=== PATIENT | female | born 1990 | race Caucasian/White ===

== ENCOUNTER 2017-06-30 14:44 | Emergency (ER) | payer SELFPAY ==
--- NOTE | 2017-06-30 15:41 | RAD REPORT ---
EXAM DESCRIPTION: CT - Head Brain Wo Cont - 06/30/2017 3:32 pm CLINICAL HISTORY: Trauma, head injury. COMPARISON: None. TECHNIQUE: All CT scans are performed using dose optimization technique as appropriate and may inclu de automated exposure control or mA/KV adjustment according to patient size. FINDINGS: No intracranial hemorrhage, hydrocephalus or extra-axial fluid collection.No areas of brai n edema or evidence of midline shift. The paranasal sinuses and mastoids are clear. The calvarium is intact. IMPRESSION: No acute intracranial abnormality.
--- NOTE | 2017-06-30 15:45 | RAD REPORT ---
EXAM DESCRIPTION: CT - Thorax Wo Con CLINICAL HISTORY: Trauma to left lateral chest COMPARISON: None FINDINGS: The lungs are clear. No pleural thickening or pleural effusion. No pneumothorax. No axillary, mediastinal or hilar adenopathy. No displaced rib fracture seen. Evidence of old healed left-sided rib fractures is noted. No gross up per abdominal finding. All CT scans are performed using dose optimization technique as appropriate and may include automated exposure control or mA/KV adjustment according to patient size. IMPRESSION: No acute intrathoracic process is identified.
[2017-06-30] MEDS ORDERED: ACETAMINOPHEN 500 MG TAB ONE (15:51)
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
[2017-06-30 16:23] VITALS: BP 97/50; O2SAT 100
== END 2017-06-30 16:13 | disposition home or self-care (01) ==
LOC: ER 14:44
DX: S20.20XA Contusion of thorax, unspecified, initial encounter (principal); S00.83XA Contusion of other part of head, initial encounter; Y04.8XXA Assault by other bodily force, initial encounter; Y93.9 Activity, unspecified; Y92.009 Unspecified place in unspecified non-institutional (private) residence as the place of occurrence of the external cause
CPT/HCPCS: 70450; 71250; 99284

== ENCOUNTER 2018-02-02 23:32 | Emergency (ER) | payer SELFPAY ==
[2018-02-03] MEDS ORDERED: KETOROLAC 30 MG/ML INJ ONE (00:16)
[2018-02-03 00:27] LABS: Urine Blood NEGATIVE (NEG); Urine Glucose NEGATIVE (NEG); Urine Protein NEGATIVE (NEG)
--- NOTE | 2018-02-03 01:52 | ER ---
Nurse's Notes [facility] Name: Lisha Boyer Age: 27 yrs Sex: Female : 1990 Arrival Date: 02/02/2018 Time: 23:33 Bed 24 Private MD: Diagnosis: Lower abdominal pain, unspecified;Constipation Presentation: 02/02 23:40 Presenting complaint: Patient states: irregular periods for the last three months, tl3 started cycle on the 29 of January with heavy clotting but now it is only spotting. Transition of care: patient was not received from another setting of care. Onset of symptoms was January 29, 2018. Risk Assessment: Do you want to hurt yourself or someone else? Patient reports no desire to harm self or others. Initial Sepsis Screen: Does the patient meet any 2 criteria? No. Patient's initial sepsis screen is negative. Does the patient have a suspected source of infection? No. Patient's initial sepsis screen is negative. Care prior to arrival: None. 23:40 Method Of Arrival: Ambulatory tl3 23:40 Acuity: RAAD 5 tl3 Triage Assessment: 23:43 General: Appears in no apparent distress. comfortable, well groomed, well developed, tl3 Behavior is calm, cooperative, appropriate for age. Pain: Complains of pain in right lower quadrant Quality of pain is described as sharp, throbbing. 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 - Social history:: Smoking status: Patient uses tobacco products, smokes one-half pack cigarettes per day. - Ebola Screening: : Patient denies exposure to infectious person Patient denies travel to an Ebola-affected area in the 21 days before illness onset No symptoms or risks identified at this time. Screenin:54 Abuse screen: Denies threats or abuse. Denies injuries from another. Nutritional mg2 screening: No deficits noted. Tuberculosis screening: No symptoms or risk factors identified. Fall Risk None identified. Assessment: 23:54 General: Appears in no apparent distress. comfortable, Behavior is calm, cooperative. mg2 Pain: Complains of pain in abdomen and right lower quadrant Pain does not radiate. Pain currently is 5 out of 10 on a pain scale. Quality of pain is described as aching, Pain began gradually, 2-3 days ago. Is intermittent. Neuro: Level of Consciousness is awake, alert, obeys commands, Oriented to person, place, time, situation. Neuro: Reports headache. Cardiovascular: Capillary refill < 3 seconds Patient's skin is warm and dry. Cardiovascular:. Respiratory: Airway is patent Respiratory effort is even, unlabored, Respiratory pattern is regular, symmetrical. GI: Abdomen is round distended, Reports constipation, nausea, vomiting, since 3 days ago. : Urine is clear. EENT: No deficits noted. Derm: Skin is intact, is healthy with good turgor, Skin is pink, warm \T\ dry. normal. Musculoskeletal: No signs and/or symptoms reported regarding the musculoskeletal system. 02/03 01:11 Reassessment: Patient appears in no apparent distress at this time. patient sent to ct mg2 scan. Vital Signs: 02/02 23:43 BP 101 / 66; Pulse 89; Resp 18; Temp 98.6(O); Pulse Ox 100% on R/A; Weight 58.38 kg; tl3 Height 5 ft. 2 in. (157.48 cm); 02/03 01:30 BP 110 / 65; Pulse 70; Resp 18; Pulse Ox 100% on R/A; Pain 0/10; mg2 02/02 23:43 Body Mass Index 23.54 (58.38 kg, 157.48 cm) tl3 ED Course: 02/02 23:33 Patient arrived in ED. am2 23:42 Triage completed. tl3 23:43 Arm band placed on left wrist. tl3 23:53 Ellis Wells, CRISTHIAN is Primary Nurse. mg2 02/03 00:00 Di Carrasco FNP-C is PHCP. snw 00:00 Vinayak Taylor MD is Attending Physician. snw 00:03 Patient has correct armband on for positive identification. Bed in low position. Pulse mg2 ox on. Sitter at bedside. Door closed. Warm blanket given. 00:03 No provider procedures requiring assistance completed. mg2 00:[address] via wheelchair. kw1 01:10 CT Stone Protocol In Process Unspecified. EDMS 01:11 CT completed. Patient tolerated procedure well. Patient moved back from CT. kw1 02:01 Patient did not have IV access during this emergency room visit. mg2 Administered Medications: 00:12 Drug: TORadol 60 mg Route: IM; Site: right gluteus; mg2 01:11 Follow up: Response: No adverse reaction; Marked relief of symptoms mg2 02:02 Not Given (Patient Refused): Miralax 17 grams PO once; mix into 4-8 oz. of any mg2 hot/cold/room temp. beverage and drink immediately Outcome: 01:51 Discharge ordered by MD. cunningham 02:01 Discharged to home ambulatory, with friend. mg2 02:01 Condition: stable 02:01 Discharge instructions given to patient, friend, Instructed on discharge instructions, follow up and referral plans. medication usage, Demonstrated understanding of instructions, follow-up care, medications, Prescriptions given X 2. 02:03 Patient left the ED. mg2 Signatures: Dispatcher [employer] EDMS Di Carrasco, BLIND SLAT STAPLING MACHINE OPERATOR-C BLIND SLAT STAPLING MACHINE OPERATOR-Csnw Lydia Dykes am2 Kianna Tan kw1 Clau Jeronimo, CRISTHIAN RN tl3 Ellis Wells RN RN mg2
--- NOTE | 2018-02-03 01:52 | EDPHYS ---
Physician Documentation [facility] Name: Lisha Boyer Age: 27 yrs Sex: Female : 1990 Arrival Date: 02/02/2018 Time: 23:33 Bed 24 Private MD: Vinayak Moss HPI: 02/03 00:07 This 27 yrs old Female presents to ER via Ambulatory with complaints of snw Vaginal Pain. 00:07 The patient presents with vaginal bleeding that is spotting. Onset: The snw symptoms/episode began/occurred gradually, 3 month(s) ago, and became persistent. Modifying factors: The symptoms are alleviated by nothing. Associated signs and symptoms: Pertinent positives: bloating, abd pain. Severity of symptoms: At their worst the symptoms were moderate. The patient's method of control includes tubal ligation. The patient has experienced similar episodes in the past, multiple times. not in 5 years. 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 - Social history:: Smoking status: Patient uses tobacco products, smokes one-half pack cigarettes per day. - Ebola Screening: : Patient denies exposure to infectious person Patient denies travel to an Ebola-affected area in the 21 days before illness onset No symptoms or risks identified at this time. ROS: 02/03 00:07 Constitutional: Negative for fever, chills, and weight loss, Eyes: Negative for injury, snw pain, redness, and discharge, ENT: Negative for injury, pain, and discharge, Neck: Negative for injury, pain, and swelling, Cardiovascular: Negative for chest pain, palpitations, and edema, Respiratory: Negative for shortness of breath, cough, wheezing, and pleuritic chest pain, Back: Negative for injury and pain, : Negative for injury, bleeding, discharge, and swelling, MS/Extremity: Negative for injury and deformity, Skin: Negative for injury, rash, and discoloration, Neuro: Negative for headache, weakness, numbness, tingling, and seizure. Abdomen/GI: Positive for abdominal pain, irregular cycles x 3 months. Exam: 00:06 Constitutional: This is a well developed, well nourished patient who is awake, alert, snw and in no acute distress. Head/Face: Normocephalic, atraumatic. Eyes: Pupils equal round and reactive to light, extra-ocular motions intact. Lids and lashes normal. Conjunctiva and sclera are non-icteric and not injected. Cornea within normal limits. Periorbital areas with no swelling, redness, or edema. ENT: Nares patent. No nasal discharge, no septal abnormalities noted. Tympanic membranes are normal and external auditory canals are clear. Oropharynx with no redness, swelling, or masses, exudates, or evidence of obstruction, uvula midline. Mucous membranes moist. Neck: Trachea midline, no thyromegaly or masses palpated, and no cervical lymphadenopathy. Supple, full range of motion without nuchal rigidity, or vertebral point tenderness. No Meningismus. Chest/axilla: Normal chest wall appearance and motion. Nontender with no deformity. No lesions are appreciated. Cardiovascular: Regular rate and rhythm with a normal S1 and S2. No gallops, murmurs, or rubs. Normal PMI, no JVD. No pulse deficits. Respiratory: Lungs have equal breath sounds bilaterally, clear to auscultation and percussion. No rales, rhonchi or wheezes noted. No increased work of breathing, no retractions or nasal flaring. Back: No spinal tenderness. No costovertebral tenderness. Full range of motion. Skin: Warm, dry with normal turgor. Normal color with no rashes, no lesions, and no evidence of cellulitis. MS/ Extremity: Pulses equal, no cyanosis. Neurovascular intact. Full, normal range of motion. Neuro: Awake and alert, GCS 15, oriented to person, place, time, and situation. Cranial nerves II-XII grossly intact. Motor strength 5/5 in all extremities. Sensory grossly intact. Cerebellar exam normal. Normal gait. Psych: Awake, alert, with orientation to person, place and time. Behavior, mood, and affect are within normal limits. 00:06 Abdomen/GI: Inspection: distension, Bowel sounds: normal, Palpation: mild abdominal tenderness, in the suprapubic area and right lower quadrant. Vital Signs: 02/02 23:43 BP 101 / 66; Pulse 89; Resp 18; Temp 98.6(O); Pulse Ox 100% on R/A; Weight 58.38 kg; tl3 Height 5 ft. 2 in. (157.48 cm); 02/03 01:30 BP 110 / 65; Pulse 70; Resp 18; Pulse Ox 100% on R/A; Pain 0/10; mg2 02/02 23:43 Body Mass Index 23.54 (58.38 kg, 157.48 cm) tl3 MDM: 00:00 Patient medically screened. snw 01:50 Data reviewed: vital signs, nurses notes. Data interpreted: Pulse oximetry: on room air snw is 100 %. Interpretation: normal. Counseling: I had a detailed discussion with the patient and/or guardian regarding: the historical points, exam findings, and any diagnostic results supporting the discharge/admit diagnosis, lab results, radiology results, the need for outpatient follow up, to return to the emergency department if symptoms worsen or persist or if there are any questions or concerns that arise at home. Special discussion: Based on the patient's Hx, exam, and Dx evaluation, there is no indication for emergent surgery or inpatient Tx. It is understood by the patient/guardian that if the Sx's persist or worsen they need to return immediately for re-evaluation. Based on the history and exam findings, there is no indication for further emergent testing or inpatient evaluation. I discussed with the patient/guardian the need to see the OB Gyne specialist for further evaluation of the symptoms. I discussed with the patient/guardian the need to see the primary care provider for further evaluation of the symptoms. 02/03 00:05 Order name: Urine Dipstick--Ancillary (enter results); Complete Time: 00:35 ms 02/03 00:05 Order name: Urine --Ancillary (enter results); Complete Time: 00:35 ms 02/03 00:01 Order name: Urine Dipstick-Ancillary (obtain specimen); Complete Time: 00:05 snw 02/03 00:06 Order name: CT Stone Protocol snw 02/03 00:02 Order name: Urine Test (obtain specimen); Complete Time: 00:05 snw Administered Medications: 00:12 Drug: TORadol 60 mg Route: IM; Site: right gluteus; mg2 01:11 Follow up: Response: No adverse reaction; Marked relief of symptoms mg2 02:02 Not Given (Patient Refused): Miralax 17 grams PO once; mix into 4-8 oz. of any mg2 hot/cold/room temp. beverage and drink immediately Disposition: 06:05 Co-signature as Attending Physician, Vinayak Taylor MD I agree with the assessment and efrain plan of care. Disposition: 02/03/18 01:51 Discharged to Home. Impression: Lower abdominal pain, unspecified, Constipation. - Condition is Stable. - Discharge Instructions: Abdominal Pain, Adult, Constipation, Adult, High-Fiber Diet. - Prescriptions for Diclofenac Sodium 75 mg Oral Tablet Sustained Release - take 1 tablet by ORAL route 2 times per day; 30 tablet. Miralax 17 gram/dose Oral - take 1 packet by ORAL route once daily dilute powder in 8 ounces of water or juice; 1 box. - Work release form, Medication Reconciliation Form, Thank You Letter, Antibiotic Education, Prescription Opioid Use form. - Follow up: Private Physician; When: 2 - 3 days; Reason: Recheck today's complaints, Continuance of care, Re-evaluation by your physician. Follow up: Emergency Department; When: As needed; Reason: Worsening of condition. Signatures: Dispatcher [employer] Vinayak Caputo MD MD cha Therrien, Shelly, RESIDENCY COORDINATOR-C RESIDENCY COORDINATOR-Csnw Clau Jeronimo, CRISTHIAN RN tl3 Ellis Wells RN RN mg2 Corrections: (The following items were deleted from the chart) 02:03 01:51 02/03/2018 01:51 Discharged to Home. Impression: Lower abdominal pain, mg2 unspecified; Constipation. Condition is Stable. Forms are Medication Reconciliation Form, Thank You Letter, Antibiotic Education, Prescription Opioid Use. Follow up: Private Physician; When: 2 - 3 days; Reason: Recheck today's complaints, Continuance of care, Re-evaluation by your physician. Follow up: Emergency Department; When: As needed; Reason: Worsening of condition. snw
[2018-02-03] MEDS ORDERED: POLYETHYL GLY 3350 17 GM/DOSE ONE (02:00)
[2018-02-03 02:16] VITALS: TEMP 98.6; O2SAT 100
[2018-02-03 02:18] VITALS: BP 110/65
--- NOTE | 2018-02-03 06:50 | RAD REPORT ---
EXAM DESCRIPTION: CT - Stone Protocol - 02/03/2018 4:16 am CLINICAL HISTORY: Abdominal pain A preliminary report was provided at the time of the study and reviewed prior to final report. COMPARISON: None. TECHNIQUE: Axial 5 mm thick images were obtained without oral or IV contrast. The [id number] span s the entirety of the system partially obscuring uppermost abdomen and lung bases. All CT scans are performed using dose optimization technique as appropriate and may include automated exposure control or mA/KV adjustment according to patient size. FINDINGS: No hydronephrosis is present and no obstructing ureteral calculi. No suspicious renal mass es. Isodense masses and pyelonephritis are not excluded on a stone protocol CT scan. No urinary bladd er suspicious finding. Imaged portions of the liver, spleen and pancreas show no suspicious findings on non-contrast imaging . No gallbladder or biliary tree abnormality identified. No significant adrenal finding. No suspicious bowel findings. Uterus and ovaries show no suspicious findings on noncontrast imaging. Large stool volume fills but does not distend the colon. No appendicitis findings. No hernia, mass or bulky lymphadenopathy noted. No free air, abnormal free fluid or inflammatory stra nding. Nonspecific inguinal lymph nodes are present. No significant bony abnormality. IMPRESSION: Noncontrast CT abdomen and pelvis imaging shows no surgically emergent finding or worris ome finding. Large stool volume is present filling but not distending the colon. Stomach is filled but not dilated by fluid content. Isodense masses and pyelonephritis are not excluded on stone protocol technique.Overall exam is limit ed in the absence of oral and IV contrast.
== END 2018-02-03 02:03 | disposition home or self-care (01) ==
LOC: ER 23:32
DX: K59.00 Constipation, unspecified (principal); F17.210 Nicotine dependence, cigarettes, uncomplicated
CPT/HCPCS: 74176; 76377; 81003; 81025; 96372; 99285

== ENCOUNTER 2024-05-21 07:00 | Day surgery (SDC) | payer OTHER, SELFPAY ==
[2024-05-21] MEDS ORDERED: Ringers Lactate 1,000 ML IV ONE ×2 (07:20→10:30)
[2024-05-21] MEDS: OXYMETAZOLINE HCL 0.05% 30ML NAS ONE ×2 (07:46→08:33)
[2024-05-21] MEDS ORDERED: propofoL 200 MG/20 ML VIAL IV ONE (08:20)
[2024-05-21] MEDS ORDERED: ONDANSETRON 4 MG/2 ML VIAL ONE (08:20)
[2024-05-21] MEDS ORDERED: dexAMETHasone 10 MG/ML VIAL ONE (08:20)
[2024-05-21] MEDS ORDERED: ROCURONIUM 50 MG/5 ML VIAL IV ONE (08:21)
[2024-05-21] MEDS ORDERED: LIDOCAINE 2% MPF 5 ML VIAL ONE (08:21)
[2024-05-21] MEDS ORDERED: MIDAZOLAM HCL 2 MG/2 ML INJ ONE (08:21)
[2024-05-21] MEDS ORDERED: FENTANYL CITR 100 MCG/2 ML ONE (08:21)
[2024-05-21] MEDS ORDERED: BACITRACIN OINTMENT 14 GM TUBE TOP ONE (08:26)
[2024-05-21] MEDS: LIDOCAINE HCL/EPINEPHRINE 20 ML MDV ONE (08:32)
[2024-05-21] MEDS ORDERED: EPHEDRINE SULF 50 MG/ML VIAL ONE (09:31)
[2024-05-21] MEDS ORDERED: NEOSTIGMINE 1 MG/ML -10 ML VIAL ONE (10:01)
[2024-05-21] MEDS ORDERED: GLYCOPYRROLATE 0.2 MG/ML SYR ONE (10:01)
--- NOTE | 2024-05-21 10:21 | P.OP ---
Director Of Field Service: NONE,NONE Preoperative diagnosis: Septal deviation and inferior turbinate hypertrophy with nasal obstruction Postoperative diagnosis: Same Primary procedure: Septoplasty Secondary procedure: Turbinate reduction by submucosal cauterization Anesthesia: General Estimated blood loss: 10 mL Specimen: Septal cartilage and bone Findings: High right septal deviation, left septal spur, suspect prior nasal fracture Operative Technique: Patient was brought to the operating room placed under general anesthesia via oral endotracheal tube. The head of bed was turned 90 degrees. The nasal hairs were trimmed with scissors using a headlight and nasal speculum. The patient was noted to have a mild anterior cartilaginous septal deviation with high right severe septal deviation and a left septal spur. The septum was injected with local anesthetic and the nasal cavity was packed with Afrin-soaked pledgets. The patient was prepped and draped in a standard fashion for nasal surgery. The Afrin-soaked pledgets were removed and a right hemitransfixion was made through the septal mucosa. A caudal elevator and scalpel was used to elevate the right mucoperichondrial flap. The cartilaginous-bony junction was identified and carefully navigated elevating the mucosa over the more posterior bony septum on the right. The left perichondrial flap was then elevated but was somewhat difficult with significant scarring and adherence with suspicion for prior nasal injury. Once the flap was elevated, a incision was made through the cartilage using a scalpel with care taken to preserve at least 1 cm L strut of the cartilage. The cartilage was carefully loosened from its inferior and posterior attachments and was removed using a Alexx forcep. A Jennings rongeur was then used to judiciously removed the portions of the right deviated high bony septum. This significantly improved the width of the right internal nasal valve. A long nasal speculum was then used for better visualization of the septal spur which was removed using the Jennings rongeurs. Overall this resulted in significant improvement of the bilateral nasal airway. The mucoperichondrial flaps were approximated to the remaining cartilaginous septum using a quilting suture on a's small straight Prudencio needle. The right hemitransfixion incision was closed in a running fashion using resorbable sutures. The unprotected needlepoint Bovie was used to perform bilateral inferior turbinate reduction via submucosal cauterization. Starting on the left, the cautery was buried into 3 locations starting from the superior and going to the inferior aspect of the inferior turbinate. The cauterization was activated for approximately 10 seconds at each location to provide cauterization and tissue reduction in these areas. Bleeding was minimal. The procedure was repeated on the right side. The cautery was buried in 3 locations starting from the superior and going to the inferior aspect of the inferior turbinate. The cauterization was activated for approximately 10 seconds at each location to provide cauterization and tissue reduction. Cochran splints were applied to the nasal cavity with modifications of the left via removal of the airway the with scissors. The splints were secured to the anterior nasal septum using a single 4-0 nylon suture. There was minimal bleeding noted and the stomach was evacuated using an orogastric tube. A small amount of additional blood was suctioned from the oropharynx using a Yankauer suction. The patient was then returned to care of anesthesia for awakening extubation in the operating room which proceeded without difficulty. Disposition: Patient will be discharged home and follow up with Dr. Caldwell in 10 days for removal of splints. Complications: None Implants: Cochran splints bilateral nasal cavity Fluids & blood products: See anesthesia record Transferred to: Recovery Room Condition: Good
[2024-05-21] MEDS: HYDROMORPHONE HCL 1 MG/ML INJ ONE ×2 (10:28→10:48)
[2024-05-21] MEDS: ONDANSETRON 4 MG/2 ML VIAL ONE (11:40)
[2024-05-21] MEDS: CODEINE 30MG/APAP 300MG TAB ONE (11:55)
[2024-05-21 13:10] VITALS: BP 107/69; TEMP 97.1; O2SAT 95
== END 2024-05-21 12:25 | disposition home or self-care (01) ==
LOC: OR 07:00
PROVIDERS: ATTEND Otolaryngology
PROC: 09SM0ZZ Reposition Nasal Septum, Open Approach (ICD-10-PCS; principal; 2024-05-21 08:30)
DX: J34.2 Deviated nasal septum (principal); J34.3 Hypertrophy of nasal turbinates; J34.89 Other specified disorders of nose and nasal sinuses
CPT/HCPCS: 88304; 30520; 30140; J2704; J2710; J2003; J2250; J3010; J1100; J1171 ×2; J2405 ×2; J7120 ×2; 88311